=== PATIENT | female | born 1975 | race Caucasian/White ===

== ENCOUNTER 2017-10-15 08:10 | Emergency (ER) | payer BC ==
[2017-10-15] MEDS ORDERED: Sodium Chloride 0.9% 10 ML Syringe FLUSH PRN (08:35)
[2017-10-15] MEDS ORDERED: Sodium Chloride 0.9% 500 ML IV ONE (08:35)
[2017-10-15] MEDS ORDERED: Ondansetron 4 MG/2 ML SDV IVPUSH ONE (08:45)
--- NOTE | 2017-10-15 09:17 | EDM.PDOC ---
ED HPI GENERAL MEDICAL PROBLEM - General Source of Information: Reports: Patient History Limitations: Reports: No Limitations - History of Present Illness Onset: Today, Sudden Onset Time: 04:30 Duration: Hour(s): (5 hours ago) Associated Symptoms: Reports: Headaches, Nausea/Vomiting, Syncope Head Pain Score (Numeric/FACES): 3 <Brigette Max - Last Filed: 10/15/17 09:10> <Harvey Mcrae - Last Filed: 10/15/17 11:04> - General Chief Complaint: Syncope Stated Complaint: FALL THIS AM/DIZZY/NAUSEA Time Seen by Provider: 10/15/17 08:31 - History of Present Illness INITIAL COMMENTS - FREE TEXT/NARRATIVE: 42 yo female presents to the ED after an episode of syncope at approximately 0430 this morning. She said she woke up at that time to use the restroom and when she went to get out of bed she experienced a severe "kita horse" in her left leg. She does not remember passing out or being on the ground. Her told her she passed out, fell to the floor and her arms became stiff and he could not wake her up immediately. She said when she came to, she felt panicked and her eyes were wide. During the episode she reports loss of bladder control. She tried to go to work today but feels as if something is still off. She describes prior episodes of vasovagal syncope in response to pain, but believes this episode is different. She has associated nausea and mild confusion and feels her brain is fuzzy. She denies weakness, numbness or tingling, change in vision. She has a mild generalized headache, 3/10 on the pain scale. She has a h/o thyroid cancer with thyroidectomy in 2017, and is followed by tom in [place]. Other than this she denies any chronic medical problems. She had been feeling well prior to this episode. (Brigette aMx) - Related Data Allergies Allergy/AdvReac Type Severity Reaction Status Date / Time Sulfa (Sulfonamide Allergy Cannot Verified 10/15/17 08:28 Antibiotics) Remember Home Meds: Home Meds Cholecalciferol (Vitamin D3) [Vitamin D3] 2,000 unit PO DAILY 10/15/17 [History] Levothyroxine [Synthroid] 88 mcg PO ACBREAKFAST 10/15/17 [History] Multivitamin [Multivitamins] 1 tab PO DAILY 10/15/17 [History] Parathyroid Hormone [Natpara] 25 mcg SQ DAILY 10/15/17 [History] Past Medical History HEENT History: Reports: Other (See Below) Other HEENT History: thyroid removed june of 2016 JORDAN MAN History: Reports: Other OB/BYN History: 3 csections. Neurological History: Reports: Concussion Other Neuro History: 3 concussions in the past when she was a child. Endocrine/Metabolic History: Reports: Hyperthyroidism Other Endocrine/Metabolic History: thyroid removed june 2016 Other Hematologic History: patient stated she has been low on iron in the past Oncologic (Cancer) History: Reports: Thyroid Other Oncologic History: thyroid cancer. removed thyroid did not need radiation - Infectious Disease History Infectious Disease History: Reports: Chicken Pox, Shingles - Past Surgical History HEENT Surgical History: Reports: Other (See Below) Other HEENT Surgeries/Procedures: thyroid removed june of 2016 Endocrine Surgical History: Reports: Thyroidectomy <Brigette Max - Last Filed: 10/15/17 09:10> Social & Family History - Tobacco Use Smoking Status *Q: Never Smoker - Recreational Drug Use Recreational Drug Use: No <Brigette Max - Last Filed: 10/15/17 09:10> ED ROS GENERAL - Review of Systems Review Of Systems: See Below Constitutional: Reports: No Symptoms. Denies: Fever, Chills, Weakness HEENT: Reports: No Symptoms, Other (lightheaded). Denies: Eye Pain, Vertigo Respiratory: Reports: No Symptoms. Denies: Shortness of Breath, Wheezing, Pleuritic Chest Pain, Cough Cardiovascular: Reports: No Symptoms. Denies: Chest Pain, Blood Pressure Problem Endocrine: Reports: No Symptoms GI/Abdominal: Reports: Abdominal Pain, Nausea, Vomiting. Denies: Constipation, Diarrhea : Reports: No Symptoms Musculoskeletal: Reports: Leg Pain (mild, L leg stiffness in area of cramp earlier) Skin: Reports: No Symptoms. Denies: Bruising, Wound, Change in Color Neurological: Reports: Confusion (mild), Dizziness (mild), Headache, Syncope, Tingling. Denies: Numbness, Tremors, Trouble Speaking, Difficulty Walking, Weakness Psychiatric: Reports: No Symptoms Hematologic/Lymphatic: Reports: No Symptoms Immunologic: Reports: No Symptoms <Brigette Max - Last Filed: 10/15/17 09:10> - Physical Exam Exam: See Below Exam Limited By: No Limitations General Appearance: Alert, WD/WN, No Apparent Distress Ears: Normal External Exam, Hearing Grossly Normal Nose: Normal Inspection Throat/Mouth: Normal Inspection Head Exam: Atraumatic, Normocephalic. No: Scalp Tenderness Neck: Normal Inspection, Supple, Full Range of Motion. No: Non-Tender Respiratory/Chest: No Respiratory Distress, Lungs Clear, Normal Breath Sounds, No Accessory Muscle Use, Chest Non-Tender Cardiovascular: Normal Peripheral Pulses, Regular Rate, Rhythm, No Edema, No Murmur, No Rub GI/Abdominal: Normal Bowel Sounds, Soft, Non-Tender Neuro Exam (Abbreviated): Alert, Oriented, Normal Cognition, No Motor/Sensory Deficits Back Exam: Normal Inspection, Full Range of Motion. No: Decreased Range of Motion, Paraspinal Tenderness, Vertebral Tenderness Extremities: Normal Inspection, Normal Range of Motion, Leg Pain (mild tenderness to palpation in the L lower leg) Psychiatric: Normal Affect, Normal Mood Skin Exam: Warm, Dry, Intact, Normal Color, No Rash. No: Rash, Wound/Incision <WinterBrigette - Last Filed: 10/15/17 09:10> Course <WinterBrigette - Last Filed: 10/15/17 09:10> <Harvey Mcrae - Last Filed: 10/15/17 11:04> - Vital Signs Last Recorded V/S: Last Vital Signs Temp 98.1 F 10/15/17 10:25 Pulse 65 10/15/17 10:25 Resp 18 10/15/17 10:25 BP 131/67 10/15/17 10:26 Pulse Ox 99 10/15/17 10:25 - Orders/Labs/Meds Orders: Active Orders 24 hr Category Date Time Status EKG 12 Lead [EKG Documentation Completion] [RC] STAT Care 10/15/17 08:35 Active Peripheral IV Care [RC] . DIRECTED Care 10/15/17 08:36 Active Sodium Chloride 0.9% [Normal Saline] 1,000 ml Med 10/15/17 09:45 Active IV ASDIRECTED Sodium Chloride 0.9% [Saline Flush] Med 10/15/17 08:35 Active 10 ml FLUSH ASDIRECTED PRN Peripheral IV Insertion Adult [OM.PC] Stat Oth 10/15/17 08:35 Ordered Medication Orders Sodium Chloride (Normal Saline) 1,000 mls @ 150 mls/hr IV ASDIRECTED DOMINGO Sodium Chloride (Saline Flush) 10 ml FLUSH ASDIRECTED PRN PRN Reason: Keep Vein Open Last Admin: 10/15/17 08:55 Dose: 10 ml Labs: Laboratory Tests 10/15/17 10/15/17 Range/Units 08:41 08:41 WBC 7.37 (3.98-10.04) K/mm3 RBC 4.62 (3.98-5.22) M/mm3 Hgb 13.6 (11.2-15.7) gm/L Hct 39.6 (34.1-44.9) % MCV 85.7 (79.4-94.8) fl MCH 29.4 (25.6-32.2) pg MCHC 34.3 (32.2-35.5) g/dl RDW Std Deviation 42.7 (36.4-46.3) fL Plt Count 218 (182-369) K/mm3 MPV 10.3 (9.4-12.3) fl Neut % (Auto) 84.0 H (34.0-71.1) % Lymph % (Auto) 11.5 L (19.3-51.7) % Karnes % (Auto) 3.9 L (4.7-12.5) % Eos % (Auto) 0.4 L (0.7-5.8) Baso % (Auto) 0.1 (0.1-1.2) % Neut # (Auto) 6.18 H (1.56-6.13) K/mm3 Lymph # (Auto) 0.85 L (1.18-3.74) K/mm3 Karnes # (Auto) 0.29 (0.24-0.36) K/mm3 Eos # (Auto) 0.03 L (0.04-0.36) K/mm3 Baso # (Auto) 0.01 (0.01-0.08) K/mm3 Sodium 139 (136-145) mEq/L Potassium 3.9 (3.5-5.1) mEq/L Chloride 103 (98-107) mEq/L Carbon Dioxide 26 (21-32) mEq/L Anion Gap 13.9 (5-15) BUN 15 (7-18) mg/dL Creatinine 0.9 (0.55-1.02) mg/dL Est Cr Clr Drug Dosing 63.75 mL/min Estimated GFR (MDRD) > 60 (>60) mL/min BUN/Creatinine Ratio 16.7 (14-18) Glucose 122 H (74-106) mg/dL Calcium 7.5 L (8.5-10.1) mg/dL Total Bilirubin 0.4 (0.2-1.0) mg/dL AST 24 (15-37) U/L ALT 35 (14-59) U/L Alkaline Phosphatase 106 (46-116) U/L Total Protein 7.4 (6.4-8.2) g/dl Albumin 3.7 (3.4-5.0) g/dl Globulin 3.7 gm/dL Albumin/Globulin Ratio 1.0 (1-2) Meds: Medications Generic Name Dose Route Start Last Admin Trade Name Freq PRN Reason Stop Dose Admin Sodium Chloride 1,000 mls @ 150 mls/hr 10/15/17 09:45 Normal Saline IV ASDIRECTED DOMINGO Sodium Chloride 10 ml 10/15/17 08:35 10/15/17 08:55 Saline Flush FLUSH 10 ml ASDIRECTED PRN Administration Keep Vein Open Discontinued Medications Generic Name Dose Route Start Last Admin Trade Name Freq PRN Reason Stop Dose Admin Sodium Chloride 500 mls @ 999 mls/hr 10/15/17 08:35 10/15/17 08:50 Normal Saline IV 10/15/17 09:05 999 mls/hr .BOLUS ONE Administration Ondansetron HCl 4 mg 10/15/17 08:45 10/15/17 08:53 Zofran IVPUSH 10/15/17 08:46 4 mg ONETIME ONE Administration - Re-Assessments/Exams Free Text/Narrative Re-Assessment/Exam: 10/15/17 10:30. Patient was initially examined by Torie VAZQUEZ student. I agree with her history and exam as documented. I have also taken a history and examined patient personally. Labs have come back in neurology relatively normal except for low calcium at 7.5. She feels much better after IV fluid, IV Zofran. Remained in sinus rhythm, no ectopy. Blood pressure at this time is good. She feels up to going home. Discharge instructions as documented. (Harvey Mcrae) Departure <Brigette Max - Last Filed: 10/15/17 09:10> - Departure Time of Disposition: 10:05 Condition: Fair <ThorHarvey Jarrett - Last Filed: 10/15/17 11:04> - Departure Disposition: Home, Self-Care 01 Clinical Impression: Vasovagal syncope, Hypocalcemia - Discharge Information Instructions: Vasovagal Syncope, Adult Referrals: Zhane Mtz MD [Primary Care Provider] - Forms: ED Department Discharge Additional Instructions: rest, no work recomended today. Continue current meds for now. Your labs were all normal today except serum calcium was low at 7.5. Contact your Communications Coordinator with that resut to see if they want to adjust dosage of your medication. Follow up clinic as needed, return to ED as needed if symptoms worsen in any way. - My Orders Last 24 Hours: My Active Orders 10/15/17 08:35 EKG 12 Lead [EKG Documentation Completion] [RC] STAT Sodium Chloride 0.9% [Saline Flush] 10 ml FLUSH ASDIRECTED PRN Peripheral IV Insertion Adult [OM.PC] Stat 10/15/17 08:36 Peripheral IV Care [RC] . DIRECTED 10/15/17 09:45 Sodium Chloride 0.9% [Normal Saline] 1,000 ml IV ASDIRECTED - Assessment/Plan Last 24 Hours: My Active Orders 10/15/17 08:35 EKG 12 Lead [EKG Documentation Completion] [RC] STAT Sodium Chloride 0.9% [Saline Flush] 10 ml FLUSH ASDIRECTED PRN Peripheral IV Insertion Adult [OM.PC] Stat 10/15/17 08:36 Peripheral IV Care [RC] . DIRECTED 10/15/17 09:45 Sodium Chloride 0.9% [Normal Saline] 1,000 ml IV ASDIRECTED
[2017-10-15] MEDS ORDERED: Sodium Chloride 0.9% 1,000 ML IV SCH (09:45)
== END 2017-10-15 10:30 | disposition home or self-care (01) ==
LOC: JD.ED 08:10
DX: R55 Syncope and collapse (principal); E83.51 Hypocalcemia; Z88.2 Allergy status to sulfonamides
CPT/HCPCS: 36415; 80053; 85025; 93005; 96361; 96374; 99284; J2405; J7040; J7050; 93010

== ENCOUNTER 2023-03-05 09:06 | Emergency (ER) | payer BC, OTHER ==
[2023-03-05] MEDS ORDERED: Sodium Chloride 0.9% 10 ML Syringe FLUSH PRN (09:29)
[2023-03-05 10:03] LABS: BASOPHILS PERCENT AUTO 0.2 % (0.0-1.0); HEMATOCRIT 35.8 % (37.0-47.0); HEMOGLOBIN 12.3 gm/dl (12.0-16.0); IMMATURE GRAN ABSOLUTE AUTO 0.01 K/mm3 (0.00-0.05); IMMATURE GRAN PERCENT AUTO 0.2 % (0.0-0.4); LYMPHOCYTES ABSOLUTE AUTO 0.7 K/mm3 (1.0-4.8); LYMPHOCYTES PERCENT AUTO 11.9 % (24.0-44.0); MEAN CORPUSCULAR HEMOGLOBIN 29.5 pg (28.0-32.0); MEAN CORPUSCULAR HGB CONC 34.4 g/dl (32.0-36.0); MEAN CORPUSCULAR VOLUME 85.9 fl (83.0-99.0); MEAN PLATELET VOLUME 9.7 fl (9.4-12.3); MONOCYTES ABSOLUTE AUTO 0.5 K/mm3 (0.0-0.8); NEUTROPHILS ABSOLUTE AUTO 4.5 K/mm3 (1.8-7.7); NEUTROPHILS PERCENT AUTO 79.7 % (41.0-71.0); PLATELET COUNT,PLT 168 K/mm3 (150-400); RED BLOOD CELL COUNT 4.17 M/mm3 (4.10-5.30); WHITE BLOOD CELL COUNT,WBC 5.61 K/mm3 (3.9-11.3)
[2023-03-05 10:33] LABS: A/G RATIO 0.8 (1-2); ALBUMIN 3.3 g/dl (3.4-5.0); ANION GAP 12.6 (5-15); BILIRUBIN TOTAL 0.4 mg/dL (0.2-1.0); BUN/CREATININE RATIO 13.6 (14-18); CALCIUM 8.4 mg/dL (8.5-10.1); CREATININE 1.1 mg/dL (0.55-1.02); EST CRCL DRUG DOSING (CG) 49.47 mL/min; MAGNESIUM 1.8 mg/dL (1.8-2.4); POTASSIUM,K 3.6 mEq/L (3.5-5.1); PROTEIN TOTAL,TP 7.3 g/dl (6.4-8.2); TSH 0.489 uIU/mL (0.358-3.74)
== END 2023-03-05 11:45 | disposition home or self-care (01) ==
LOC: JD.ED 09:06
DX: R55 Syncope and collapse (principal); Z88.2 Allergy status to sulfonamides; Z88.6 Allergy status to analgesic agent; Z79.899 Other long term (current) drug therapy
CPT/HCPCS: 36415; 70450; 80053; 83735; 84443; 84484; 85025; 93005; 99285; J3490; 93010; 99282